=== PATIENT | male | born 2005 | race African-American/Black ===

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

== ENCOUNTER 2025-10-14 14:19 | Emergency (ER) | payer OTHER, SELFPAY ==
[2025-10-14 14:27] VITALS: BP 135/73; PULSE 88; RESP 16; TEMP 36.9; O2SAT 99
--- NOTE | 2025-10-14 14:44 | ED.SKABFB ---
HPI - Skin/Abscess/Foreign Bdy General Chief complaint: Skin/Abscess/Foreign Body Stated complaint: Cyst Time Seen by Provider: 10/14/25 14:30 Source: patient and RN notes reviewed Mode of arrival: ambulatory Limitations: no limitations History of Present Illness HPI narrative: 20-year-old male patient presents Express Care complaining of possible cyst to his scrotum. Reports pain redness and swelling with a bump on his left scrotal area has been going to for last 2-3 days. Patient reports he popped a yesterday reported as purulent drainage. Patient denies any fevers, body aches, chills, testicle pain, scrotal swelling, penile discharge, urinary symptoms. Denies any concern for STDs reports having recent unprotected sex. Patient has any history of STDs. Related Data Home Medications ?Medication ?Instructions ?Recorded ?Confirmed ?Last Taken ?Type dextroamphetamine-amphetamine ER PO 10/14/23 Unknown History 20 mg 24hr capsule,extend release (Adderall XR) Allergies Allergy/AdvReac Type Severity Reaction Status Date / Time No Known Allergies Allergy Unknown Verified 10/10/14 14:40 Review of Systems Review of Systems: CONSTITUTIONAL: Denies fever, chills, or sweats. EYES: Denies visual changes, redness, or discharge. ENT: Denies rhinorrhea, congestion, sore throat, or otalgia. CARDIOVASCULAR: Denies chest pain, palpitations, or edema. RESPIRATORY: Denies cough or dyspnea. GASTROINTESTINAL: Denies abdominal pain, nausea, vomiting, or diarrhea. GENITOURINARY: Denies dysuria, penile discharge, testicle pain, scrotal pain,, scrotal swelling, testicle swelling, painful erection, hematuria. SKIN: Denies rash or itching. Positive for scrotal wound MUSCULOSKELETAL: Denies back pain, joint pain, or myalgia. NEUROLOGIC: Denies headache, numbness, or weakness. PSYCHIATRIC: Denies anxiety or depression. All other systems reviewed are negative, except as documented in HPI. [facility] Past Medical History Medical History ADHD (attention deficit hyperactivity disorder) Social History Social History Smoking status: Never smoker Alcohol intake: unknown Substance use: current Substance use type: marijuana Living arrangements: with family Gender identity (if verbalized by the patient): Male Comments At the time of my signature, I reviewed and agree with the nursing past medical, surgical, social, and family history. There is no relevant family history pertinent to the patient complaint. Exam Narrative: GENERAL: This is a well-nourished, well-developed adult, in no apparent distress. They are non ill-appearing, nontoxic appearing. HEAD: normocephalic, atraumatic. EYES: Sclera clear/white. Conjunctiva normal. Vision is grossly intact. Extraocular movements intact EARS: External ears normal, Hearing grossly intact. NOSE: External nose normal THROAT: Mucous membranes moist, NECK: Neck supple, CARDIOVASCULAR: Regular rate and rhythm RESPIRATORY: Respiratory rate normal, respiratory effort nonlabored, no respiratory distress GASTROINTESTINAL: Abdomen soft, non-tender, nondistended. GENITOURINARY: Penis normal. There is an erythematous papule to the left upper scrotum. Is mildly tender to palpate. Is measuring approximately 1 cm x 1 cm. No area of fluctuance, no induration. No other suspicious lesions or rashes present. Testicles normal. SKIN: warm, Dry, intact with no suspicious lesions or rash, good texture and turgor. NEURO: awake, alert, and oriented to person, place and time. There were no obvious focal neurologic abnormalities. EXTREMITIES: No joint tenderness, effusion, or edema noted. BACK: Nontender without deformity. Course Course Level of Care: Express Care Visit Vital Signs Vital signs: Vital Signs Temperature 98.5 F 10/14/25 14: Pulse Rate 88 10/14/25 14: Respiratory Rate 16 10/14/25 14:27 Blood Pressure 135/73 10/14/25 14:27 Pulse Oximetry 99 10/14/25 14:27 Temperature 98.5 F 10/14/25 14: Pulse Rate 88 10/14/25 14: Respiratory Rate 16 10/14/25 14: Blood Pressure 135/73 10/14/25 14:27 Pulse Oximetry 99 10/14/25 14:27 MDM MDM Narrative Medical decision making narrative: Neda RIVERO present room during genital exam. Patient may have a folliculitis. Patient like STD testing, urine chlamydia, gonorrhea, Trichomonas or pending. Advised patient we are limited for STD testing any go to the health department for a more comprehensive workup. Will send home with doxycycline. Discussed physical exam findings. Advised supportive measures and signs/symptoms to go to the ER. Pt is appropriate for outpt treatment and f/u. Differential Diagnosis Differential Diagnosis: Syphilis, STD, folliculitis, abscess, cellulitis Critical Care Time Critical Care Time Critical Care Time: No Discharge Plan Discharge Clinical Impression: Folliculitis Patient Disposition: Home Condition: Stable Instructions: Antibiotic Form, Folliculitis (ED) Additional Instructions: Take doxycycline as directed.?Your urine sample has been sent off to test for gonorrhea, chlamydia, and trichomonas infections. ?These tests can take up to 1-3 days to come back. You Will be notified the results once they have resulted. Please remain abstinent until you know your results or have completed full treatment for an STD. Follow-up with PCP in 3-5 days. If your symptoms worsen, you developed fever, abdominal pain, nausea, vomiting, testicular pain, worsening scrotal pain, or any other serious concerns please go to the ER immediately. You may get further testing for comprehensive STD workup at the [facility]. Patient Language: Macanese Prescriptions: New doxycycline monohydrate 100 mg capsule 100 mg PO BID 7 Days Qty: 14 0RF No Action dextroamphetamine-amphetamine [Adderall XR] 20 mg capsule,extended release 24hr PO (DME) [employer] Card Home Tst Kit See Rx Instructions .Route Qty: 1 0RF Rx Instructions: As directed Follow-up/Referrals: PHYSICIAN,[facility] [Primary Care Provider, Internal Medicine] Stand Alone Forms: Work/School Release IP Time of Disposition: 14:43
[2025-10-14 20:04] LABS: Trichomonas Vag PCR NOT DETECTED (NOT DETECTE)
== END 2025-10-14 14:50 | disposition home or self-care (01) ==
DX: L73.9 Follicular disorder, unspecified (principal); Z11.3 Encounter for screening for infections with a predominantly sexual mode of transmission; F90.9 Attention-deficit hyperactivity disorder, unspecified type
CPT/HCPCS: 87491; 87591; 87661; 99213; G0463